=== PATIENT | male | born 1995 | race Caucasian/White ===

== ENCOUNTER 2017-03-20 13:38 | Emergency (ER) | payer OTHER ==
[~2017-03-20] VITALS: Ht 175.3 cm; Wt 99.8 kg
[2017-03-20] MEDS ORDERED: LACTATED RINGERS 1,000 ML IV ONE ×2 (13:45→14:02)
[2017-03-20 13:53] LABS: BASOPHILS % (AUTO) 0 % (0-10); EOSINOPHILS # (AUTO) 0.2 10^3/uL (0.0-0.3); EOSINOPHILS % (AUTO) 2 % (0-10); HEMATOCRIT 46 % (40-54); HEMOGLOBIN 16.4 G/DL (13.3-17.7); LYMPHOCYTES # (AUTO) 2.5 X 10^3 (1.0-4.0); LYMPHOCYTES % (AUTO) 24 % (12-44); MEAN CORPUSCULAR HEMOGLOBIN 29 PG (25-34); MEAN CORPUSCULAR HGB CONC 36 G/DL (32-36); MEAN CORPUSCULAR VOLUME 81 FL (80-99); MEAN PLATELET VOLUME 10.3 FL (7.4-10.4); MONOCYTES % (AUTO) 9 % (0-12); NEUTROPHILS # (AUTO) 6.5 X 10^3 (1.8-7.8); NEUTROPHILS % (AUTO) 64 % (42-75); PLATELET COUNT 365 10^3/uL (130-400); RED BLOOD COUNT 5.65 10^6/uL (4.35-5.85); WHITE BLOOD COUNT 10.1 10^3/uL (4.3-11.0)
--- NOTE | 2017-03-20 13:57 | ED EENT ---
History of Present Illness General Chief Complaint: Oral/Throat Problems Stated Complaint: VOMITING BLOOD Source: patient, other Exam Limitations: no limitations History of Present Illness Time seen by provider: 13:39 Initial Comments Patient presents to the ER by private conveyance with his friend and a chief complaint that he is status post tonsillectomy secondary to snoring by one week. Patient says he feels tired and weak and has been spitting up probably an estimated 300 - 500 cc of blood clots today. Patient denies any previous medical history or coronary history. He denies shortness of breath or chest pain. He says he has taken some Aleve today because of the pain and some hydrocodone last dose was about 2 days ago. He denies any other trauma. He has not had any falls yet. He does not smoke or drink alcohol. Patient is carrying an ice cream bucket 150 cc of blood clots and states that he is probably let out about twice more than that prior to presentation to the ER. Allergies and Home Medications Allergies Coded Allergies: No Known Drug Allergies (Unverified , 03/20/17) Home Medications Acetaminophen 325 Mg Tablet, 650 MG PO Q4H PRN for PAIN-MILD, (Reported) Review of Systems Constitutional: No chills, No fever Eyes: Denies Blindness, Denies Blurred Vision Ears: Denies Dizziness, Denies Pain Nose: denies clots, denies congestion Mouth: see HPI, clots, pain, bloody discharge Throat: pain, swelling, painful swallowing, denies difficulty with fluids Respiratory: No cough, No orthopnea, No phlegm, No short of breath Cardiovascular: No chest pain, No Hx of Intervention, No palpitations, No syncope, No vascular heart diseas Gastrointestinal: No abdominal pain, No constipation, No diarrhea, No nausea, No vomiting Musculoskeletal: No back pain, No joint pain, No joint swelling Past Cyhkxww-Gzpcdu-Rljgun Hx Patient Social History Alcohol Use: Denies Use Recreational Drug Use: No Smoking Status: Never a Smoker Physical Exam Vital Signs Vital Sign - Last 12Hours 03/20/17 13:42 Temp 97.9 Pulse 117 Resp 20 B/P (MAP) 145/90 (108) O2 Delivery Room Air General Appearance: WD/WN, mild distress Eyes: bilateral eye normal inspection, bilateral eye PERRL, bilateral eye EOMI Ears: bilateral ear auricle normal, bilateral ear canal normal, bilateral ear TM normal Nose: normal inspection, No active bleeding, No discharge Mouth/Throat: No dental tenderness, other (blood clots in the oral cavity and a blood clot on the stump of the left remnant of tonsil but is still oozing slowly from uncertain area.) Respiratory: chest non-tender, lungs clear, normal breath sounds Gastrointestinal: normal bowel sounds, non tender, soft Neurologic/Psychiatric: alert, normal mood/affect, oriented x 3 Skin: diaphoresis, damp, pallor Progress/Results/Core Measures Results/Orders Lab Results Laboratory Tests Test 03/20/17 13:40 Range/Units White Blood Count 10.1 4.3-11.0 10^3/uL Red Blood Count 5.65 4.35-5.85 10^6/uL Hemoglobin 16.4 13.3-17.7 G/DL Hematocrit 46 40-54 % Mean Corpuscular Volume 81 80-99 FL Mean Corpuscular Hemoglobin 29 25-34 PG Mean Corpuscular Hemoglobin Concent 36 32-36 G/DL Red Cell Distribution Width 12.0 10.0-14.5 % Platelet Count 365 130-400 10^3/uL Mean Platelet Volume 10.3 7.4-10.4 FL Neutrophils (%) (Auto) 64 42-75 % Lymphocytes (%) (Auto) 24 12-44 % Monocytes (%) (Auto) 9 0-12 % Eosinophils (%) (Auto) 2 0-10 % Basophils (%) (Auto) 0 0-10 % Neutrophils # (Auto) 6.5 1.8-7.8 X 10^3 Lymphocytes # (Auto) 2.5 1.0-4.0 X 10^3 Monocytes # (Auto) 1.0 0.0-1.0 X 10^3 Eosinophils # (Auto) 0.2 0.0-0.3 10^3/uL Basophils # (Auto) 0.0 0.0-0.1 10^3/uL Prothrombin Time 13.7 12.2-14.7 SEC INR Comment 1.0 0.8-1.4 Activated Partial Thromboplast Time 31 24-35 SEC Sodium Level 139 135-145 MMOL/L Potassium Level 3.7 3.6-5.0 MMOL/L Chloride Level 103 98-107 MMOL/L Carbon Dioxide Level 24 21-32 MMOL/L Anion Gap 12 5-14 MMOL/L Blood Urea Nitrogen 11 7-18 MG/DL Creatinine 1.03 0.60-1.30 MG/DL Estimat Glomerular Filtration Rate > 60 BUN/Creatinine Ratio 11 Glucose Level 93 70-105 MG/DL Calcium Level 9.9 8.5-10.1 MG/DL Total Bilirubin 0.5 0.1-1.0 MG/DL Aspartate Amino Transf (AST/SGOT) 24 5-34 U/L Alanine Aminotransferase (ALT/SGPT) 60 H 0-55 U/L Alkaline Phosphatase 94 40-136 U/L Total Protein 8.8 H 6.4-8.2 GM/DL Albumin 4.5 3.2-4.5 GM/DL My Orders Orders - GLENIS HASTINGS Cbc With Automated Diff (03/20/17 13:42) Comprehensive Metabolic Panel (03/20/17 13:42) Protime With Inr (03/20/17 13:42) Partial Thromboplastin Time (03/20/17 13:42) Type And Screen (03/20/17 13:42) Saline Lock/Iv-Start (03/20/17 13:42) Saline Lock/Iv-Start (03/20/17 13:45) Lactated Ringers (Lr 1000 Ml Iv Solution (03/20/17 13:45) Ondansetron Injection (Zofran Injectio (03/20/17 14:15) Saline Lock/Iv-Start (03/20/17 14:02) Lactated Ringers (Lr 1000 Ml Iv Solution (03/20/17 14:02) Ekg Tracing (03/20/17 14:50) Continuous Ekg Monitoring (03/20/17 14:50) Medications Given in ED Current Medications Medications Dose Ordered Sig/Frieda Route Start Time Stop Time Status Last Admin Dose Admin Lactated Ringer's 1,000 ml @ 0 mls/hr Q0M ONCE IV 03/20/17 14:02 03/20/17 14:04 DC 03/20/17 13:50 0 MLS/HR Ondansetron HCl 4 mg ONCE ONCE IVP 03/20/17 14:15 03/20/17 14:16 DC 03/20/17 14:12 4 MG Vital Signs/I&O Vital Sign - Last 12Hours 1/16/18 13:42 Temp 97.9 Pulse 117 Resp 20 B/P (MAP) 145/90 (108) O2 Delivery Room Air Progress Note #1: Time: 13:58 Progress Note Shortly after arrival the patient's blood pressures taken found to be in the high 90s and after blood draw his blood pressure dropped down to 83 systolic and he started to pass out had diaphoresis. We'll obtain blood type and screen him and consult ENT locally. Total blood loss is somewhat between 300- 500 cc. Progress Note #2: Time: 14:02 Progress Note Hemoglobin is 16 and his hypotensive episode has resolved and his color is looking better. Might be related to vasovagal syncope secondary to IVs being placed. Consults Consults #1: Consulting Physician: ROSIBEL SERRANO Consults Notes Dr. Covarrubias is unavailable at this time and he'll need to go somewhere that has ear nose and throat. They do recommend using cold water swish and gargle for at least 1 minute. Consults #2: Consults Notes Dr. Chavez ear nose and throat at [facility] in [place], [place] recommends that the bleeding is slowing down he does not miss any need to be seen tonight nor does need admission after reviewing his labs and vitals. She recommended soft diet being a couch potato and returning to ER if his bleeding become significantly in. She does also recommended dose of Ancef and steroids high dose 1 as this helps the swelling, pain and hopefully bleeding. Departure Impression Impression: Primary Impression: Post tonsillectomy secondary hemorrhage Disposition: 01 HOME, SELF-CARE Condition: Improved Departure-Patient Inst. Decision time for Depature: 15:38 Referrals: NO,LOCAL PHYSICIAN (PCP/Family) Primary Care Physician Patient Instructions: Tonsillectomy (DC) Add. Discharge Instructions: Soft foods and a clear liquid diet. Get some rest do not do anything exciting it would raise your blood pressure. Be a couch potato. If he started having bleeding again use ice cold water and gargle for 1 minute. If this does not resolve your bleeding or you start to have chest pain, shortness of breath, weakness or passing out then you should return to the ER. Keep your routine follow-up appointments. All discharge instructions reviewed with patient and/or family. Voiced understanding. GLENIS HASTINGS Mar 20, 2017 13:57
[2017-03-20 14:05] LABS: PROTHROMBIN TIME PATIENT 13.7 SEC (12.2-14.7)
[2017-03-20] MEDS ORDERED: ACET325T38 PO (14:07)
[2017-03-20 14:14] LABS: ALANINE AMINOTRANSFERASE 60 U/L (0-55); ALBUMIN 4.5 GM/DL (3.2-4.5); ALKALINE PHOSPHATASE 94 U/L (40-136); BILIRUBIN,TOTAL 0.5 MG/DL (0.1-1.0); BUN/CREATININE RATIO 11; CALCIUM 9.9 MG/DL (8.5-10.1); CARBON DIOXIDE 24 MMOL/L (21-32); CHLORIDE 103 MMOL/L (98-107); CREATININE SERUM 1.03 MG/DL (0.60-1.30); GFR ESTIMATED > 60; GLUCOSE 93 MG/DL (70-105); POTASSIUM 3.7 MMOL/L (3.6-5.0); SODIUM 139 MMOL/L (135-145); TOTAL PROTEIN 8.8 GM/DL (6.4-8.2)
[2017-03-20] MEDS ORDERED: ONDANSETRON 4 MG/2 ML (SDV) Z0FRAN IVP ONE (14:15)
[2017-03-20] MEDS ORDERED: ceFAZolin INJECTION 1,000 MG in NS (IVPB) 50 ML IV ONE (15:45)
[2017-03-20] MEDS ORDERED: DEXAMETHASONE 10 MG/ML (DECADRON) 1 ML VIAL IV ONE (15:45)
[2017-03-20] MEDS ORDERED: HYDR-3812 PO (16:39)
[2017-03-20 16:45] VITALS: BP 118/65
== END 2017-03-20 16:52 | disposition home or self-care (01) ==
LOC: ER 13:41
DX: J95.830 Postprocedural hemorrhage of a respiratory system organ or structure following a respiratory system procedure (principal); Z90.89 Acquired absence of other organs
CPT/HCPCS: 36415; 80053; 85025; 85610; 85730; 86850; 86900; 86901; 93005; 96374; 96375